=== PATIENT | male | born 1965 | race Caucasian/White ===

== ENCOUNTER 2018-08-03 09:17 | Day surgery (SDC) | payer OTHER ==
[2018-08-03] MEDS ORDERED: ONDANSETRON HCL INJ/PF 4 MG/2 ML SDV IV PRN (09:54)
[2018-08-03] MEDS ORDERED: PROMETHAZINE HCL INJ 25 MG/1 ML VIAL IV PRN (09:54)
[2018-08-03] MEDS ORDERED: DIPHENHYDRAMINE HCL 50 MG/ML VIAL IV PRN (09:54)
[2018-08-03] MEDS ORDERED: PROPOFOL INJ 200 MG/20 ML VIAL IV ONE (09:58)
--- NOTE | 2018-08-03 11:42 | Operative Report ---
Operative Report DATE OF SURGERY: 08/03/18 Operative Report: The risks, benefits and alternatives of the procedure including the risk of bleeding, perforation requiring surgery have been explained to the patient in detail and informed consent has been obtained. Patient is taken back to the operating room and placed in a left, lateral decubital position. Timeout was called. Propofol medication is administered. Rectal examination is done which did not reveal any masses, tears or fissures. An Olympus videoscope is introduced into the patient's rectum. The scope was then carefully advanced all the way to the cecum. The cecum was identified by the usual anatomical landmarks including the ileocecal valve as well as the appendiceal office. Photodocumentation was obtained. The scope was then sequentially pulled back via the various segments of the colon including the ascending colon, hepatic flexure, transverse colon, splenic flexure, descending colon and finally into the rectosigmoid portions of the colon. Retroflexion maneuver was performed. PREOPERATIVE DIAGNOSIS: Colorectal cancer screening POSTOPERATIVE DIAGNOSIS: Normal screening colonoscopy OPERATION: Diagnostic colonoscopy SURGEON: RADHA PAEZ ANESTHESIA: LMAC TISSUE REMOVED OR ALTERED: None. COMPLICATIONS: None. ESTIMATED BLOOD LOSS: None. INTRAOPERATIVE FINDINGS: As noted above. PROCEDURE: Patient tolerated the procedure well. No immediate postprocedure complications are noted. Patient discharged in good condition. Discharge date 08/03/2018. Discharge diet: Regular. Discharge activity: Regular. 10-year surveillance colonoscopy. Patient is instructed to call the office or proceed to the emergency room should there be any further questions.
[2018-08-03 12:51] VITALS: BP 118/72
== END 2018-08-03 12:10 | disposition home or self-care (01) ==
LOC: OROUT 09:17
PROVIDERS: ATTEND Internal Medicine Gastroenterology
DX: Z12.11 Encounter for screening for malignant neoplasm of colon (principal); E03.9 Hypothyroidism, unspecified; G47.33 Obstructive sleep apnea (adult) (pediatric); Z79.899 Other long term (current) drug therapy
CPT/HCPCS: 45378; J2704; 812

== ENCOUNTER → 2019-02-17 | Outpatient (CLI) | payer OTHER ==
[2019-02-17 18:08] LABS: FREE T3 4.6 pg/mL (2.77-5.27); FREE T4 (FREE THYROXINE) 1.1 ng/dL (0.78-2.19)
[2019-02-17 18:22] LABS: THYROID STIMULATING HORMONE 0.03 uIU/mL (0.47-4.68)
== END ==
LOC: OD 16:44
PROVIDERS: ATTEND Family Medicine
DX: E03.9 Hypothyroidism, unspecified (principal); M70.22 Olecranon bursitis, left elbow; Z68.30 Body mass index [BMI] 30.0-30.9, adult
CPT/HCPCS: 36415; 84439; 84443; 84481; 85652; 86038; 86140; 86200; 86430

== ENCOUNTER → 2019-02-28 | Outpatient (CLI) | payer OTHER ==
--- NOTE | 2019-02-28 16:46 | RADIOLOGY REPORT (SQ) ---
EXAM DESCRIPTION: ELBOW LEFT >2 VIEWS COMPLETED DATE/TIME: 02/28/2019 3:51 pm REASON FOR STUDY: OLECRANON BURSITIS, LEFT ELBOW M70.22 OLECRANON BURSITIS, LEFT ELBOW COMPARISON: None. NUMBER OF VIEWS: Four view. TECHNIQUE: AP, lateral, and both oblique radiographic images acquired of the left elbow. LIMITATIONS: None. FINDINGS: MINERALIZATION: Normal. BONES: No acute fracture or dislocation. No worrisome bone lesions. No significant osteophytes. JOINT: No effusions. SOFT TISSUES: No soft tissue swelling. No foreign body. OTHER: No other significant finding. IMPRESSION: NEGATIVE STUDY OF THE LEFT ELBOW. NO EXPLANATION FOR PAIN. TECHNICAL DOCUMENTATION: JOB ID: [id number]- All Rights Reserved. Reading location - IP/workstation name: [email or web address]
== END ==
LOC: OD 15:33
PROVIDERS: ATTEND Family Medicine
DX: M70.22 Olecranon bursitis, left elbow (principal)